=== PATIENT | female | born 1975 | race Caucasian/White ===

== ENCOUNTER 2020-10-19 18:49 | Emergency (ER) | payer OTHER ==
[~2020-10-19] VITALS: Ht 160 cm; Wt 76.2 kg
[2020-10-19 19:03] VITALS: BP 124/54
--- NOTE | 2020-10-19 19:08 | NUR ---
PT SENT TO LOBBY
[2020-10-19] MEDS ORDERED: LIDOCAINE MPF 1% 10 MG/ML VIAL INJ ONE (19:30)
--- NOTE | 2020-10-19 19:39 | NUR ---
Female [employer] Farmer accompanied female patient for ABCESS DRAINAGE ON THE VAGINAL REGION.
[2020-10-19] MEDS ORDERED: CEPH-588 PO (19:42)
[2020-10-19] MEDS ORDERED: NAPR-54 PO (19:42)
--- NOTE | 2020-10-19 20:04 | NUR ---
Patient discharged with v/s stable. Written and verbal after care instructions given and explained. Patient alert, oriented and verbalized understanding of instructions. Ambulatory with steady gait. All questions addressed prior to discharge. ID band removed. Patient advised to follow up with PMD. Rx of KEFLEX AND NAPROXEN given. Patient educated on indication of medication including possible reaction and side effects. Opportunity to ask questions provided and answered.
== END 2020-10-19 20:04 | disposition home or self-care (01) ==
LOC: MED 18:49
DX: N76.4 Abscess of vulva (principal)
CPT/HCPCS: 56405; 99284; J2001

== ENCOUNTER 2021-01-15 19:41 | Emergency (ER) | payer OTHER ==
[~2021-01-15] VITALS: Ht 160 cm; Wt 77.3 kg
[~2021-01-15 19:41] MED LIST: CEPH-588 PO; NAPR-54 PO
[2021-01-15 20:37] VITALS: BP 151/77
--- NOTE | 2021-01-15 22:00 | NUR ---
pt taken to bed 03
[2021-01-15] MEDS ORDERED: VANCOMYCIN 1,000 MG in DEXTROSE 5% 250 ML IV ONE (22:15)
[2021-01-15] MEDS ORDERED: VANCOMYCIN 1,000 MG VIAL ONE (22:24)
[2021-01-15 22:43] LABS: BASOPHILS % (AUTO) 0.3 % (0.0-2.0); EOSINOPHILS # (AUTO) 0.2 K/uL (0-0.4); EOSINOPHILS % (AUTO) 2.5 % (0.0-4.0); HEMATOCRIT 37.7 % (36-48); HEMOGLOBIN 13.2 g/dL (12.0-16.0); LYMPHOCYTES # (AUTO) 2.8 K/uL (2.5-16.5); LYMPHOCYTES % (AUTO) 28.9 % (20.5-51.1); MEAN CORPUSCULAR HEMOGLOBIN 32 pg (27-31); MEAN CORPUSCULAR HGB CONC 35 g/dL (33-37); MEAN CORPUSCULAR VOLUME 90.9 fL (80-94); MONOCYTES # (AUTO) 0.6 K/uL (0.8-1.0); MONOCYTES % (AUTO) 6.4 % (1.7-9.3); NEUTROPHILS % (AUTO) 61.9 % (42.2-75.2); PLATELET COUNT (AUTO) 247 K/uL (140-450); RED BLOOD CELL COUNT(AUTO) 4.14 MIL/uL (4.20-5.40); RED CELL DISTRIBUTION WIDTH 13.1 % (11.6-13.7); WHITE BLOOD COUNT (AUTO) 9.8 K/uL (4.8-10.8)
[2021-01-15 23:03] LABS: ALBUMIN 3.7 g/dL (3.4-5.0); ANION GAP 13.9 (8-16); CREATININE 0.8 mg/dL (0.6-1.3); POTASSIUM 3.9 mmol/L (3.5-5.1); TOTAL BILIRUBIN 0.3 mg/dL (0.0-1.0)
--- NOTE | 2021-01-15 23:13 | NUR ---
patient ambulated to the bathroom
--- NOTE | 2021-01-16 00:14 | NUR ---
patient c/o itchiness throughout the body, "feel hot", and explained "throat feels funny". ERMD made aware
--- NOTE | 2021-01-16 00:20 | NUR ---
patient ambulated to the bathroom
[2021-01-16] MEDS ORDERED: diphenhydrAMINE 50 MG/ML VIAL IVP ONE (00:25)
[2021-01-16] MEDS ORDERED: [UNRECOGNIZED DRUG - CODE] TP (01:59)
[2021-01-16] MEDS ORDERED: SULF-59 PO (01:59)
--- NOTE | 2021-01-16 02:04 | NUR ---
RACHEL cannon d/c iv. IV removed, catheter intact and site benign. Applied folded 4x4 gauze and tape to stop bleeding.
[2021-01-16 02:05] VITALS: BP 139/74
--- NOTE | 2021-01-16 02:05 | NUR ---
RACHEL Bee d/c pt. RACHEL comfortable sending patient home.
--- NOTE | 2021-01-16 02:05 | NUR ---
Patient discharged with v/s stable. Written and verbal after care instructions given and explained. Patient alert, oriented and verbalized understanding of instructions. Ambulatory with steady gait. All questions addressed prior to discharge. ID band removed. Patient advised to follow up with PMD. Rx of Chlorhexidine Gluconate, and Bactrim Ds Tablet given. Patient educated on indication of medication including possible reaction and side effects. Opportunity to ask questions provided and answered.
== END 2021-01-16 02:05 | disposition home or self-care (01) ==
LOC: MED 19:41
DX: L03.115 Cellulitis of right lower limb (principal); B95.62 Methicillin resistant Staphylococcus aureus infection as the cause of diseases classified elsewhere; Z79.899 Other long term (current) drug therapy
CPT/HCPCS: 36415; 80053; 85025; 87040; 96365; 96375; 99284; J1200; J3370

== ENCOUNTER 2023-05-12 10:31 | Day surgery (SDC) | payer OTHER ==
[~2023-05-12] VITALS: Ht 162.6 cm; Wt 79.4 kg
[~2023-05-12 10:31] MED LIST changes: +SULF-59 PO; +[UNRECOGNIZED DRUG - CODE] TP
[2023-05-12] MEDS ORDERED: fentaNYL citrate 0.05 MG/ML VIAL ONE (11:38)
[2023-05-12] MEDS: fentaNYL citrate 0.05 MG/ML VIAL IVP ONE (12:05)
[2023-05-12] MEDS: LIDOCAINE 2% 100 MG/5 ML UJET TP ONE (12:12)
== END 2023-05-12 13:40 | disposition home or self-care (01) ==
LOC: MDS 10:31 → MMU 10:32 → MDS 13:40
PROVIDERS: ATTEND Internal Medicine Gastroenterology
DX: R14.0 Abdominal distension (gaseous) (principal); K75.81 Nonalcoholic steatohepatitis (NASH); K57.30 Diverticulosis of large intestine without perforation or abscess without bleeding; K63.5 Polyp of colon; E78.00 Pure hypercholesterolemia, unspecified; E66.8 Other obesity; Z68.30 Body mass index [BMI] 30.0-30.9, adult; Z90.49 Acquired absence of other specified parts of digestive tract; Z98.890 Other specified postprocedural states
CPT/HCPCS: 45385; J3010